=== PATIENT | male | born 1975 | race Caucasian/White ===

== ENCOUNTER 2019-06-08 02:52 | Emergency (ER) | payer OTHER ==
[~2019-06-08] VITALS: Ht 177.8 cm; Wt 113.4 kg
[2019-06-08] MEDS ORDERED: PREDNISONE 20 MG TAB PO STA (02:55)
[2019-06-08] MEDS ORDERED: FAMOTIDINE 20 MG TAB PO STA (02:55)
[2019-06-08] MEDS ORDERED: EPINEPHRINE HCL 1:1000 1ML 1 MG/ML AMP IM ONE (03:00)
[2019-06-08] MEDS ORDERED: DIPHENHYDRAMINE HCL 25 MG CAP PO ONE (03:00)
[2019-06-08] MEDS ORDERED: EPINEPHRINE HCL 1:1000 1ML 1 MG/ML AMP ONE (03:12)
[2019-06-08] MEDS ORDERED: EPINEPHRINE HCL 1:1000 1ML 1 MG/ML AMP INJ STA (03:26)
[2019-06-08 04:22] VITALS: BP 136/64
== END 2019-06-08 04:21 | disposition home or self-care (01) ==
LOC: FSED 02:52
DX: R21 Rash and other nonspecific skin eruption (principal); T78.2XXA Anaphylactic shock, unspecified, initial encounter
CPT/HCPCS: 96372; 99283; J0171; J7512